=== PATIENT | male | born 1995 | race African-American/Black ===

== ENCOUNTER 2018-01-22 09:28 | Emergency (ER) | payer BC, MEDICAID ==
[2018-01-22 09:53] VITALS: BP 138/87
--- NOTE | 2018-01-22 09:59 | UC ---
General HPI - HPI Summary HPI Summary: This is scribe Jyoti Fritz documenting for attending Fatoumata Billingsley M.D. Pt is a 22 y/o M who presents to [facility] c/o Patients medication reviewed this visit. Pt c/o inability to swallow saliva and increased swelling in tonsils and L side of mouth that started a couple of days ago and has gotten progessively worse. Pt states has not been able drink/ eat "for a few days" Pt also c/o of L ear pain. - History of Current Complaint Chief Complaint: UCGeneralIllness Stated Complaint: SORE THROAT EAR PAIN Time Seen by Provider: 01/22/18 09:38 Hx Obtained From: Patient Onset/Duration: Still Present Current Severity: Severe Pain Intensity: 9 Pain Location at: Throat - Allergy/Home Medications Allergies/Adverse Reactions: Allergies Allergy/AdvReac Type Severity Reaction Status Date / Time No Known Allergies Allergy Verified 01/22/18 09:45 PMH/Surg Hx/FS Hx/Imm Hx - Surgical History Surgical History: None - Social History Alcohol Use: Rare Substance Use Type: Marijuana Substance Use Comment - Amount & Last Used: "occasional" Smoking Status (MU): Light Every Day Tobacco Smoker Type: Cigars Amount Used/How Often: 1 cigar/ week Review of Systems Constitutional: Negative Skin: Negative Eyes: Negative ENT: Negative Respiratory: Negative Cardiovascular: Negative Gastrointestinal: Negative Genitourinary: Negative Motor: Negative Neurovascular: Negative Musculoskeletal: Negative Neurological: Negative Psychological: Negative All Other Systems Reviewed And Are Negative: Yes Physical Exam Vital Signs: Initial Vital Signs Temp 98.8 F 01/22/18 09:46 Pulse 87 01/22/18 09:46 Resp 20 01/22/18 09:46 BP 138/87 01/22/18 09:46 Pulse Ox 100 01/22/18 09:46 Discharge - Discharge Plan Referrals: Dragan Loyola MD [Primary Care Provider] -
--- NOTE | 2018-01-22 10:09 | ED ---
Throat Pain/Nasal Congestion - HPI Summary HPI Summary: 22M presents with left side throat for the past 3 days. He states it is greatest on the left side. He's been having difficulty swallowing. He also been drooling. He admits to some shortness breath. No chest pain. has never had this before. Does have a history of strep. Has no medical conditions. Denies any sinus congestion. No known fevers. No headache. - History of Current Complaint Chief Complaint: UCGeneralIllness Time Seen by Provider: 01/22/18 09:38 - Allergies/Home Medications Allergies/Adverse Reactions: Allergies Allergy/AdvReac Type Severity Reaction Status Date / Time No Known Allergies Allergy Verified 01/22/18 09:45 PMH/Surg Hx/FS Hx/Imm Hx Endocrine/Hematology History: Denies: Hx Diabetes, Hx Thyroid Disease Cardiovascular History: Denies: Hx Hypertension Respiratory History: Denies: Hx Asthma, Hx Chronic Obstructive Pulmonary Disease (COPD) GI History: Denies: Hx Ulcer Infectious Disease History: No Infectious Disease History: Denies: Hx Clostridium Difficile, Hx Hepatitis, Hx Human Immunodeficiency Virus (HIV), Hx of Known/Suspected MRSA, Hx Shingles, Hx Tuberculosis, Traveled Outside the [place] in Last 30 Days - Family History Known Family History: Negative: Respiratory Disease - Social History Alcohol Use: Rare Substance Use Type: Reports: Marijuana Substance Use Comment - Amount & Last Used: "occasional" Smoking Status (MU): Light Every Day Tobacco Smoker Type: Cigars Amount Used/How Often: 1 cigar/ week Review of Systems Negative: Fever Positive: Sore Throat Negative: Chest Pain Positive: Shortness Of Breath All Other Systems Reviewed And Are Negative: Yes Physical Exam Triage Information Reviewed: Yes Vital Signs On Initial Exam: Initial Vitals Temp Pulse Resp BP Pulse Ox 98.8 F 87 20 138/87 100 01/22/18 09:46 01/22/18 09:46 01/22/18 09:46 01/22/18 09:46 01/22/18 09:46 Vital Signs Reviewed: Yes Appearance: Positive: Ill-Appearing Skin: Positive: Warm, Dry Head/Face: Positive: Normal Head/Face Inspection Eyes: Positive: Normal, Conjunctiva Clear ENT: Positive: Pharyngeal erythema, TMs normal, Tonsillar swelling, Trismus, Muffled voice, Other - left tonsils. Negative: Uvula midline - shifted to the right Diagnostics - Vital Signs Vital Signs Temp Pulse Resp BP Pulse Ox 01/22/18 09:46 98.8 F 87 20 138/87 100 - Laboratory Lab Statement: Any lab studies that have been ordered have been reviewed, and results considered in the medical decision making process. [facility] Course/Dx - Course Course Of Treatment: 22M presents with left side throat for the past 3 days. He states it is greatest on the left side. He's been having difficulty swallowing. He also been drooling. He admits to some shortness breath. No chest pain. has never had this before. Does have a history of strep. Has no medical conditions. Denies any sinus congestion. No known fevers. No headache. on exam has tonsils enlarge on left. uvula shifted right. trismus. strept pos. gave dose of augmentin. called ent office and has an appoitment in an hour to get peritonsillar abscess drainged. will have follow up with primary to get blood pressure checked as is elevated at this time. patient understand and agrees with plan. - Differential Diagnoses Differential Diagnoses: Tonsilitis, Other - peritonsillar abscess, retropharygneal abscess - Diagnoses Provider Diagnoses: Peritonsillar abscess, Streptococcal sore throat Discharge - Sign-Out/Discharge Documenting (check all that apply): Patient Departure - Discharge Plan Condition: Good Disposition: HOME Prescriptions: Amoxicillin/Clavulanate SUSP* [Augmentin SUSP*] 880 mg PO BID #1 [id number] Patient Education Materials: Peritonsillar Abscess (ED) Referrals: Dragan Loyola MD [Primary Care Provider] - Tino Hernandez MD [Medical Doctor] - Additional Instructions: go immediately to dr hernandez office take augmentin 11ml twice daily for 10 days Take Tylenol or ibuprofen every 6 hours for pain/fever Return to if develop any new or worsening symptoms - Billing Disposition and Condition Condition: GOOD Disposition: Home Attestation Statement User Type: Provider - I was available for consult. This patient was seen by the REY. The patient was not presented to, seen by, or examined by me. -Akanksha
[2018-01-22] MEDS ORDERED: Amoxicillin/Clavulanate SUSP* 400 MG/5 ML BTL PO ONE (10:15)
[2018-01-22] MEDS ORDERED: Ibuprofen ADULT LIQ* 600 MG/30 ML UDC PO ONE (10:18)
[2018-01-22] MEDS ORDERED: Dexamethasone Oral Solution* 1 MG/ML 10 ML UDC (10 MG) PO ONE (10:18)
== END 2018-01-22 10:39 | disposition home or self-care (01) ==
LOC: UCEAST 09:28
DX: J36 Peritonsillar abscess (principal); R06.02 Shortness of breath; F17.290 Nicotine dependence, other tobacco product, uncomplicated
CPT/HCPCS: 87651; 99202; A9270-GY; G0463